=== PATIENT | female | born 1970 | race African-American/Black ===

== ENCOUNTER → 2017-03-25 | Outpatient (CLI) | payer BC ==
[~2017-03-25] MED LIST: ADIPEX-P37.5 MG PO; FLONASE NASAL S16 GM NS; SINGULAIR 110 MG/TAB PO; ZYRTEC 10MG10 MG PO
== END ==
LOC: MC.RAD 07:14
DX: Z12.31 Encounter for screening mammogram for malignant neoplasm of breast (principal); N63 Unspecified lump in breast

== ENCOUNTER → 2018-10-27 | Outpatient (CLI) | payer BC | LOC: MC.RAD 10:25 | DX: Z12.31 Encounter for screening mammogram for malignant neoplasm of breast (principal) ==

== ENCOUNTER 2021-01-27 10:52 | Emergency (ER) | payer BC ==
[~2021-01-27] VITALS: Ht 162.6 cm; Wt 136.4 kg
[2021-01-27 11:00] VITALS: TEMP 97.5
[2021-01-27 12:05] LABS: BASO # 0.1 (0.0-0.2); BASO % 0.6 % (0.0-2.0); EOS # 0.1 (0.0-0.7); GRAN # 5.2 (1.4-6.5); GRAN % 61.9 % (42.2-75.2); HEMATOCRIT 44.3 % (37.0-47.0); HEMOGLOBIN 14.6 g/dl (12.5-16.0); LYMPH # 2.6 (1.2-3.4); MEAN CELL VOLUME 91 fl (80.0-100.0); MEAN CORPUSCULAR HEMOGLOBIN 30 pg (27.0-31.0); MEAN CORPUSCULAR HGB CONC 33 g/dl (33.0-37.0); MEAN PLATELET VOLUME 8.9 fl (7.4-10.4); MONO # 0.4 (0.1-0.6); MONO % 5.1 % (1.7-9.3); PLATELET COUNT 395 K/mm3 (130-400); RED BLOOD COUNT 4.85 M/mm3 (4.10-5.30); REDCELL DISTRIBUTION WIDTH-CV 12.3 % (11.5-14.5)
[2021-01-27 12:16] LABS: C-REACTIVE PROTEIN 1.8 mg/dL (0.0-0.9); CALCIUM 9.3 mg/dL (8.4-10.2); CREATININE, serum 0.94 (0.52-1.25); TOTAL PROTEIN 9.2 gm/dL (6.4-8.2)
[2021-01-27 13:21] LABS: COLLECTION METHOD CLEAN CATCH
[2021-01-27 13:30] LABS: MUCOUS Present /lpf; PH 5 (5-8); SQUAMOUS EPITHELIAL 0-2 /hpf; URINE APPEARANCE Hazy; URINE BACTERIA Rare /hpf; URINE BILIRUBIN Negative (NEGATIVE); URINE BLOOD Negative (NEGATIVE); URINE COLOR Yellow; URINE GLUCOSE Negative (NEGATIVE); URINE KETONE Negative (NEGATIVE); URINE LEUKOCYTE ESTERASE Negative (NEGATIVE); URINE NITRATE Negative (NEGATIVE); URINE PROTEIN(semi-quant) Negative (NEGATIVE); URINE RBC None Seen /hpf; URINE UROBILINOGEN Negative (NEGATIVE)
[2021-01-27 14:05] VITALS: BP 122/80; PULSE 79
== END 2021-01-27 14:08 | disposition home or self-care (01) ==
LOC: COL.ER 10:52
PROVIDERS: Family Medicine
DX: R10.31 Right lower quadrant pain (principal); R23.2 Flushing; T46.7X5A Adverse effect of peripheral vasodilators, initial encounter; Z88.1 Allergy status to other antibiotic agents
CPT/HCPCS: J2405; J3010; J7120

== ENCOUNTER → 2021-02-19 | Outpatient (CLI) | payer BC | LOC: COL.RAD 13:48 | DX: R10.2 Pelvic and perineal pain (principal) ==

== ENCOUNTER → 2021-09-18 | Outpatient (CLI) | payer BC | LOC: MC.RAD 09:35 | DX: Z12.31 Encounter for screening mammogram for malignant neoplasm of breast (principal) ==

== ENCOUNTER 2022-05-16 06:20 | Day surgery (SDC) | payer BC ==
[~2022-05-16] VITALS: Ht 162.6 cm; Wt 146.4 kg
[2022-05-16 07:01] VITALS: BP 141/71; PULSE 99; TEMP 98.3
[2022-05-16] MEDS ORDERED: GLUCOPHAGE500 MG/TAB PO (07:08)
[2022-05-16] MEDS ORDERED: PEPCID 20MG TAB20 MG PO (07:08)
[2022-05-16] MEDS ORDERED: PRISTIQ25 MG PO (07:09)
[2022-05-16] MEDS ORDERED: ALDACTONE 100M100 MG PO (07:10)
[2022-05-16] MEDS ORDERED: MASON NATURAL2000 IU PO (07:11)
[2022-05-16] MEDS ORDERED: MULTI VITAMINS1 TAB PO (07:11)
[2022-05-16] MEDS ORDERED: B-12 250 MCG PO (07:12)
[2022-05-16] MEDS ORDERED: ZYRTEC 10MG10 MG PO (07:13)
[2022-05-16] MEDS ORDERED: MAGNESIUM250 M1 PO (07:14)
[2022-05-16] MEDS ORDERED: FLONASEALLERGY NS (07:14)
[2022-05-16] MEDS ORDERED: SINGULAIR 110 MG/TAB PO (07:15)
[2022-05-16 08:15] VITALS: BP 126/84; PULSE 91; TEMP 98.2
--- NOTE | 2022-05-16 08:15 | NUR ---
PATIENT RETURNED TO ROOM 2 VIA CART. ASSIST X 2 TO CHAIR. SHE IS ALERT AND ORIENTED. VITAL SIGNS WNL. SHE REQUESTS A MUFFIN AND CRANBERRY JUICE. SHE HAS A FRIEND TO CALL WHEN SHE IS READY FOR DISCHARGE. WILL CONTINUE TO MONITOR.
[2022-05-16 08:30] VITALS: BP 133/91; PULSE 83
--- NOTE | 2022-05-16 08:30 | NUR ---
PATIENT IS ALERT AND ORIENTED. SHE TOLERATED HER MUFFIN AND JUICE WELL. VITAL SIGNS WNL. WILL CONTINUE TO MONITOR.
[2022-05-16 08:45] VITALS: BP 143/89; PULSE 83
--- NOTE | 2022-05-16 08:45 | NUR ---
PATIENT IS READY FOR DISCHARGE. IV REMOVED. DISCHARGE INSTRUCTIONS REVIEWED. DOCTOR NEEDS TO COME SPEAK TO PATIENT AND THEN SHE WILL BE READY TO GO HOME. LAST SET OF VITAL SIGNS WNL. SHE IS GETTING DRESSED, WILL D/C ONCE SHE SPEAKS WITH DOCTOR.
== END 2022-05-16 09:10 | disposition home or self-care (01) ==
LOC: SDCO 06:20
DX: Z12.11 Encounter for screening for malignant neoplasm of colon (principal); E66.01 Morbid (severe) obesity due to excess calories; K21.9 Gastro-esophageal reflux disease without esophagitis; Z79.899 Other long term (current) drug therapy; Z79.51 Long term (current) use of inhaled steroids; Z79.84 Long term (current) use of oral hypoglycemic drugs
CPT/HCPCS: J2704; J7120

== ENCOUNTER → 2023-02-07 | Outpatient (RCR) | payer BC ==
[~2023-02-07] MED LIST changes: +ALDACTONE 100M100 MG PO; +B-12 250 MCG PO; +FLONASEALLERGY NS; +GLUCOPHAGE500 MG/TAB PO; +MAGNESIUM250 M1 PO; +MASON NATURAL2000 IU PO; +MULTI VITAMINS1 TAB PO; +PEPCID 20MG TAB20 MG PO; +PRISTIQ25 MG PO
== END | disposition home or self-care (01) ==
LOC: WSPT
DX: M51.36 Other intervertebral disc degeneration, lumbar region (principal)

== ENCOUNTER 2023-03-07 13:30 | Outpatient (RCR) | payer BC | END 2023-03-09 | disposition home or self-care (01) | LOC: WSPT | DX: M51.36 Other intervertebral disc degeneration, lumbar region (principal) ==

== ENCOUNTER → 2023-04-10 | Outpatient (CLI) | payer BC | LOC: COL.RAD 12:06 | DX: M51.27 Other intervertebral disc displacement, lumbosacral region (principal); M48.07 Spinal stenosis, lumbosacral region; M47.26 Other spondylosis with radiculopathy, lumbar region; M51.16 Intervertebral disc disorders with radiculopathy, lumbar region ==